=== PATIENT | female | born 1995 | race Caucasian/White ===

== ENCOUNTER 2023-09-27 07:56 | Outpatient (CLI) | payer BC, SELFPAY ==
--- NOTE | 2023-09-27 08:15 | CRLHL7_ITS ---
For Patients: As a result of the Century Cures Act, medical imaging exams and procedure reports are released immediately into your electronic medical record. You may view this report before your referring provider. If you have questions, please contact your health care provider. INDICATION: First trimester scan, establish dates. COMPARISON: None. TECHNIQUE: Real-time dietrich-scale imaging of the pelvis was performed. FINDINGS: Sonographic imaging demonstrates a single living intrauterine gestation. The embryo demonstrates a regular cardiac rate measuring 171 beats per minute. The embryo`s crown-rump length measurement of 3.2 cm corresponds to a gestational age of 10 weeks 1 day with a sonographic due date of 04/23/2024. There is a normal-appearing yolk sac. There are no gross abnormalities noted within the embryo at this early state of development. The gestational sac has a normal appearance. There is no evidence of a perigestational hemorrhage. The amount of fluid within the sac appears appropriate for gestational age. The cervix is closed. The myometrium appears normal. The ovaries are of normal size. Corpus luteal cyst left ovary. There are no suspicious fluid collections noted in the cul-de-sac. IMPRESSION: Normal first trimester OB ultrasound exam. Gestational age calculated at 10 weeks 1 day with a sonographic due date of 04/23/2024. Dictated by Teo Jamil MD @ 09/27/2023 9:13:02 AM (Electronically Signed)
== END 2023-09-27 07:57 | disposition home or self-care (01) ==
LOC: US 07:58
PROVIDERS: Visit Provider Registered Nurse
DX: Z34.91 Encounter for supervision of normal pregnancy, unspecified, first trimester (principal); Z3A.10 10 weeks gestation of pregnancy
CPT/HCPCS: 76801; 86703; 86706; 86803; 86850; 86900; 86901; 87086; 87340; 87491; 87591

== ENCOUNTER 2023-09-27 09:05 | Outpatient (CLI) | payer BC, SELFPAY ==
[2023-09-27 13:08] LABS: Chlamydia DNA Amplified* NOT DETECTED (No Detected); GC DNA Amplified* NOT DETECTED (No Detected)
== END 2023-09-27 09:06 | disposition home or self-care (01) ==
PROVIDERS: Visit Provider Registered Nurse
DX: Z34.91 Encounter for supervision of normal pregnancy, unspecified, first trimester (principal)
CPT/HCPCS: 86592; 86703; 86704; 86706; 86762; 86787; 86803; 86850; 86900; 86901; 87086; 87340; 87491; 87591

== ENCOUNTER 2023-11-29 13:32 | Outpatient (CLI) | payer BC, SELFPAY | END 2023-11-29 13:33 | disposition home or self-care (01) | LOC: RAD 13:32 | PROVIDERS: Visit Provider Obstetrics & Gynecology | DX: R00.2 Palpitations (principal) | CPT/HCPCS: 93225; 93226 ==

== ENCOUNTER 2023-12-12 09:01 | Outpatient (CLI) | payer BC, SELFPAY ==
--- NOTE | 2023-12-12 09:04 | US_ITS ---
Final Report Patient: ANA PAULA ZEPEDA Facility:?[facility] Patient ID:?[id number] Site Patient ID:?[id number]. Site :?1995 Study:?US OB Pelvis OB ANATOMY-12/12/2023 10:19:32 AM Ordering Physician:?JENNA DURHAM Final Report: INDICATION: Evaluate anatomy. COMPARISON: 09/27/2023 TECHNIQUE: Real time dietrich scale imaging of the fetus was performed as well as color Doppler analysis of the umbilical vessels. FINDINGS: Sonographic imaging demonstrates a single living intrauterine gestation. Fetus demonstrates a regular cardiac rate of 154 beats per minute. Fetus has a vertex position. The placenta lies anteriorly without evidence of placenta previa. Incidental placental lakes are present. Placental edge is 3.4 cm from the internal cervical os. Amniotic fluid volume appears normal. Single deepest vertical pocket: 4.0 cm. The cervix is closed and measures 4.1 cm in length. The composite ultrasound gestational age is calculated at 21 weeks 3 days with an estimated sonographic due date of 04/20/2024. The estimated weight is 397 grams which lies at the 91st %. The following biometric measurements were obtained: Biparietal diameter: 5.0 cm/21 weeks 0 days 82nd% Head circumference: 18.9 cm/21 weeks 2 days 86th% Abdominal circumference: 15.8 cm/20 weeks 6 day 70th% Femur length: 3.6 cm/21 weeks 2 days 79th% The HC/AC ratio measures: 1.20 range (1.06-1.24) On anatomic survey, there is a normal appearance of the cerebral ventricles, cavum septi pellucidi, cisterna magna and cerebellum. The nose, lips, and facial profile appear normal. The cervical, thoracic and lumbar spine are well visualized and appear normal. There is a normal four-chamber heart view and the left and right ventricular outflow tracts appear normal. The diaphragm and stomach appear normal. The kidneys and bladder also appear normal. There is a normal three-vessel cord and cord insertion site. The four extremities appear normal. IMPRESSION: Sonographic gestational age 21 weeks 3 days and a sonographic due date of 04/20/2024. Sonographic age 9 days ahead of the clinical age. Estimated weight 91st percentile. Abdominal circumference 70th percentile. Normal anatomic survey. Dictated by Teo Jamil MD @ 12/12/2023 11:27:47 AM (Electronic Signature)
== END 2023-12-12 09:02 | disposition home or self-care (01) ==
LOC: US 09:01
PROVIDERS: Visit Provider Obstetrics & Gynecology
DX: Z34.92 Encounter for supervision of normal pregnancy, unspecified, second trimester (principal); Z3A.20 20 weeks gestation of pregnancy
CPT/HCPCS: 76805

== ENCOUNTER 2024-01-09 08:07 | Outpatient (CLI) | payer BC, SELFPAY ==
--- NOTE | 2024-01-09 08:15 | US_ITS ---
Patient: ANA PAULA ZEPEDA Facility:?[facility] Patient ID:?[id number] Site Patient ID:?[id number]. Site :?1995 Study:?US-OB Pelvis growth check-01/09/2024 8:57:51 AM Ordering Physician:ZINA Final Report: INDICATION: recheck growth and placenta lakes COMPARISON: 12/12/2023 TECHNIQUE: Real time dietrich scale imaging of the fetus was performed. FINDINGS: Sonographic imaging demonstrates a single living intrauterine gestation. Fetus demonstrates a regular cardiac rate of 133 beats per minute. Fetus has a vertex position. The placenta lies anterior fundal. Amniotic fluid volume appears normal and there is a single deepest vertical pocket: 4.3 cm. The estimated weight is 765gm which lies at the 82nd %. On the prior OB ultrasound exam dated 12/12/2023 the estimated weight was at the 91st%. BPD 78th percentile. HC 78th percentile. AC 62nd percentile. FL 74th percentile. The HC/AC ratio measures 1.16 range (1.04-1.22). Tiny placental lakes are incidentally noted. IMPRESSION: Sonographic gestational age 25 weeks 1 day and sonographic due date of 04/22/2024. Sonographic age 1 week ahead of the clinical age. Estimated weight 82nd percentile. Abdominal circumference 62nd percentile. Dictated by Teo Jamil MD @ 01/09/2024 10:52:48 AM Signed by:?Teo Jamil MD @01/09/2024 10:52:48 AM (Electronic Signature)
== END 2024-01-09 08:08 | disposition home or self-care (01) ==
LOC: US 08:08
PROVIDERS: Visit Provider Obstetrics & Gynecology
DX: O43.102 Malformation of placenta, unspecified, second trimester (principal); Z3A.25 25 weeks gestation of pregnancy
CPT/HCPCS: 76816

== ENCOUNTER 2024-02-06 14:25 | Outpatient (CLI) | payer BC, SELFPAY | END 2024-02-06 14:26 | disposition home or self-care (01) | LOC: NFLDREF 02-09 06:51 | PROVIDERS: Visit Provider Obstetrics & Gynecology | DX: Z34.93 Encounter for supervision of normal pregnancy, unspecified, third trimester (principal) | CPT/HCPCS: 86592 ==

== ENCOUNTER 2024-02-13 07:46 | Outpatient (CLI) | payer BC, SELFPAY | END 2024-02-13 07:47 | disposition home or self-care (01) | LOC: NFLDREF 02-14 11:14 | PROVIDERS: Visit Provider Obstetrics & Gynecology | DX: R73.09 Other abnormal glucose (principal) | CPT/HCPCS: 82951; 82952 ==

== ENCOUNTER 2024-03-05 12:55 | Outpatient (CLI) | payer BC, SELFPAY ==
--- NOTE | 2024-03-05 13:00 | US_ITS ---
Patient: ANA PAULA ZEPEDA Facility:?[facility] Patient ID:?[id number] Site Patient ID:?[id number]. Site :?1995 Study:?US-OB Pelvis FOLLOW UP-03/05/2024 1:38:12 PM Ordering Physician:?FRANCHESKA RODRIGUEZ Final Report: OBSTETRICAL ULTRASOUND ? [id number] INDICATION: Follow-up growth and placental lakes. COMPARISON: 01/09/2024. PARKER by LMP: 04/29/2024. GESTATIONAL AGE: 32w 1d. TECHNIQUE: Transabdominal pelvic ultrasound. FINDINGS: position: Vertex. Cervix: Not visualized. Placenta position: Anterior, fundal, left wall. Amniotic fluid: 4.1 cm SDP. Biometry: BPD: 8.4 cm, 33 weeks 5 days, 83%. HC: 30 cm, 33 weeks 2 days, 41%. AC: 29 cm, 33 weeks 0 days, 75%. FL: 6.3 cm, 32 weeks 4 days, 47%. FL/AC Ratio: 21.63%. HC/AC Ratio: 1.03. heart rate: 125 bpm. EFW: 2086 g, 4 lb 10 oz. age by this ultrasound: 33 weeks 1 day. PARKER by this ultrasound: 04/22/2024. Percentile by PARKER: 66%. IMPRESSION: 1. Measurements are consistent with dates. 2. Good interval growth since the prior exam. 3. The placenta appears normal for age. Jose Gibbs M.D. Body/Diagnostic Radiologist [email or web address] JOAQUIM/roseann D& Transcribed: 5:15 p.m. SP/Dictated by: Jose Gibbs MD @ 03/06/2024 3:28:00 PM Signed by:?Jose Gibbs MD @03/07/2024 4:05:26 PM (Electronic Signature)
== END 2024-03-05 12:56 | disposition home or self-care (01) ==
LOC: US 12:55
PROVIDERS: Visit Provider Obstetrics & Gynecology
DX: O43.103 Malformation of placenta, unspecified, third trimester (principal); Z3A.33 33 weeks gestation of pregnancy
CPT/HCPCS: 76816

== ENCOUNTER 2024-04-04 11:47 | Outpatient (CLI) | payer BC, SELFPAY ==
[2024-04-05 14:28] LABS: Strep B DNA Probe Negative (Negative)
[2024-04-05 14:34] LABS: Strep B Susceptibility Needed? No
== END 2024-04-04 11:48 | disposition home or self-care (01) ==
LOC: NFLDREF 11:47
PROVIDERS: Visit Provider Obstetrics & Gynecology
DX: Z34.93 Encounter for supervision of normal pregnancy, unspecified, third trimester (principal)
CPT/HCPCS: 87081; 87653

== ENCOUNTER 2024-04-27 16:29 | Outpatient (CLI) | payer BC, SELFPAY ==
[2024-04-27 16:49] VITALS: TEMP 36.5
--- NOTE | 2024-04-27 18:52 | PC.OBNST ---
NST Note NST Note Start: 04/27/24 16:51 Freq: ONCE Status: Active Protocol: Document 04/27/24 18:51 PROTESTANT (Rec: 04/27/24 18:51 PROTESTANT [id number]) NST Note 4 Para (# of births) 2 EDC 04/29/24 Gestational Age In Weeks & Days 39 Weeks & 5 Days Patient Presented with Complaint(s) of Contractions/cramping Reactive Yes Appropriate for Gestational Age Yes JESUS Odonnell.Rojelio Date 04/27/24 Reactive Yes Appropriate for Gestational Age Yes JESUS Mayers.Rojelio Date 04/27/24 OB NST charge Yes Complete NST Note via Write Note Yes The provider's electronic signature indicates the NST is reactive/appropriate for gestational age. *Note to provider: If an addendum is required, open the patient's chart and click on the note under the Nurse/Allied Health tab.
== END 2024-04-27 18:48 | disposition home or self-care (01) ==
LOC: OB OUT 16:31 → OB 16:45
PROVIDERS: Visit Provider Obstetrics & Gynecology
DX: O47.1 False labor at or after 37 completed weeks of gestation (principal); Z3A.39 39 weeks gestation of pregnancy
CPT/HCPCS: 59025; G0463

== ENCOUNTER 2024-05-01 02:13 | Inpatient (IN) | payer BC, SELFPAY ==
[2024-04-30 22:48] VITALS: BP 128/74; PULSE 100; PULSE 91; O2SAT 97
[2024-04-30 22:50] VITALS: TEMP 36.6
[2024-04-30 23:28] LABS: Amnisure Rom* Negative
[2024-05-01] VITALS (43 sets, daily range): BP systolic 104–139; BP diastolic 58–83; PULSE 65–109; RESP 12–16; TEMP 36.6–37.1; O2SAT 93–100; BMI 28.8
[2024-05-01 03:10] LABS: Basophils Percent Auto 0.3 % (0.0-3.0); Hematocrit 36.6 % (33.0-51.0); Hemoglobin* 12.2 gm/dL (12.0-16.0); Immature Granulocytes Pct Auto 0.8 %; Lymphocytes Percent Auto 20.5 % (20-44); Mean Corpuscular HGB Conc 33 gm/dL (32-36); Mean Corpuscular Hemoglobin 29 pg (26-34); Mean Corpuscular Volume 86 fL (80-100); Neutrophils Percent Auto 70.4 % (42.0-72.0); Platelet Count* 220 K/uL (140-440); RDW Coefficient of Variation % 13.4 % (11.5-15.5); Red Blood Count 4.27 m/uL (4.00-5.20); White Blood Count* 11.85 K/uL (4.50-11.00)
[2024-05-01 03:12] LABS: Slide Review Reflex No
[2024-05-01] MEDS: LACTATED RINGERS 1000 ML 1,000 ML 125 ML IV (08:00)
[2024-05-01] MEDS: OXYTOCIN 30 unit/500 ML in NS 30 UNIT/500 ML BAG IVPB (08:03)
--- NOTE | 2024-05-01 08:57 | W.PM.LDBA ---
Subjective History of Present Illness Date Seen: 05/01/24 Narrative: Patient is being admitted to Labor and Delivery for labor augmentation. She is a 28 year old at 40 2/7 weeks gestation. Her full history and physical was dictated by Dr. Ash on 04/09/24. Please see this for details. Patient came in last night with concerns of watery like vaginal discharge. Evaluation at labor and delivery does not support rupture of membranes, but patient with advanced cervical dilation, lives more than 45 minutes from the hospital and history of PPH x2. After discussion with patient, she would prefer to be admitted for delivery. Specific Issues/Plans H&P 04/09/24, Nilsa Spouse: Colt. Daughter's: Joseph Arizmendi. Baby: Girl! PLEASE NOTIFY DR. RAMIRES FOR DELIVERY- 2 large IVs upon arrival, T&C # History of hemorrhage x2 due to lower uterine atony. Required packed red blood cells and FFP following 2nd delivery. Dr Mark Perez has a thorough plan laid out for future deliveries in a previous office visit note. Continue vitamin plus iron supplement. Can take every other day. For active management of the 3rd stage of labor: Immediately after infant delivery: 1 g IV TXA, 30 units pitocin in 500ml Saline wide open. Immediately after delivery of the placenta: 800mg Cytotec TN, 0.20mg IM Methergine to prevent uterine atony. I encouraged the patient to consider epidural for labor analgesia due to history of requiring bimanual massage of her uterus to treat uterine atony with both of her previous pregnancies/deliveries. Bimanual massage is exquisitely painful if women do not have ITN or epidural anesthesia. Plan Porsha if WINNIE atony after delivery of the placenta. Discussed recommendation for IOL at 39 weeks (or as indicated sooner) in the setting of risk of PPH on 11/27, patient would like to avoid induction but will consider further #Placental lakes at FAS -Growth US at 24 weeks: normal, tiny placental lakes -Growth US at 32 weeks: Normal. Growth 66% #History of depression. Stable mood 1st OB. #History of skin cancer (not melanoma). Follows with Dermatology on a regular basis. #Varicose veins in lower extremities Flu: Recommended. Declines Covid: Recommended. Reviewed risks of COVID infection in . Not vaccinated, declined Tdap: Declined OB - Problem Based A/P Additional Plan (1) : Status: Acute Plan 1. Labor augmentation, will start low dose Oxytocin, once she is feeling contractions as stronger plans to get epidural and after epidural will proceed with AROM. 2. GBS negative, no need for antibiotic prophylaxis. 3. Hx. of PPH. [address], hemoglobin upon admission 12.2mg/dL. Normal platelets. Will plan to give TXA within 30 minutes of expected vaginal delivery. All uterotonics available and no contraindications, PORSHA in room. OB Exam Physical Exam Vital signs: Temp Pulse Resp BP Pulse Ox 98.2 F 88 16 117/69 98 05/01/24 08:13 05/01/24 08:13 05/01/24 08:13 05/01/24 08:13 05/01/24 08:13 Detailed Labor and Delivery Exam Patient Gravid: Yes Dilation (cm): 6 Effacement (%): 70 Cervix position: mid Consistency: soft Tachysystole: No Contraction intensity: Mild Fetus (Single) Station: -2 Amniotic Membrane Status: intact Heart Rate Baseline: 120 Monitor Accelerations: Present Monitor Decelerations: None Regulatory Affairs Specialist Variability: Moderate (6-25)
[2024-05-01] MEDS: ROPIVACAINE 0.2% 100 ml 100 ML 12 MG EPIDURAL (12:05)
[2024-05-01] MEDS: BUPIVACAINE 0.25% PF 10 ML 10 ML ML EPIDURAL (12:05)
--- NOTE | 2024-05-01 12:13 | PM.ANBPRC ---
[facility] Medical History Depression with anxiety ?F41.8 - Other specified anxiety disorders (ICD-10) Basal cell carcinoma ?C44.91 - Basal cell carcinoma of skin, unspecified (ICD-10) ADD (attention deficit disorder) ?F98.8 - Other specified behavioral and emotional disorders with onset usually occurring in childhood and adolescence (ICD-10) Suicide attempt ?T14.91XA - Suicide attempt, initial encounter (ICD-10) GERD (gastroesophageal reflux disease) ?K21.9 - Gastro-esophageal reflux disease without esophagitis (ICD-10) History of blood transfusion ?Z92.89 - Personal history of other medical treatment (ICD-10) hemorrhage ?O72.1 - Other immediate hemorrhage (ICD-10) Infection due to severe acute respiratory syndrome coronavirus 2 (SARS-CoV-2) ?U07.1 - COVID-19 (ICD-10) Surgical History S/P Mohs surgery for basal cell carcinoma (06/19/19) ?Z98.890 - Other specified postprocedural states (ICD-10) ?Z85.828 - Personal history of other malignant neoplasm of skin (ICD-10) History of repair of anterior cruciate ligament of right knee (~2008) ?Z98.890 - Other specified postprocedural states (ICD-10) Family History Maternal Grandmother Breast cancer Mother Breast cancer Aunt Breast cancer Paternal Grandfather Coronary artery disease Sister Leukemia Father Seizure disorder Social History Narrative: Cis-gender, heterosexual, woman Relationship status: . 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 Tobacco: Lifetime nonsmoker E-cigarettes: No Alcohol: No Illicit/recreational drugs: No Safety concerns at home or work: No Dietary restriction(s): No Exercise: No Delivery History: 1. 07/25/2019. . 40w1d. Female. 8#7oz. [place]. Epidural. [facility]. EBL 800mL 2. 12/31/2020. . 40w3d. Female. 6#14oz. [place]. Epidural. [facility]. QBL 994mL. WINNIE atony. 2u pRBC's, 1u FFP. 3. Surgical age 15. What is your current living situation?: I presently have a place to live Problems where you live: no known problems In the past 12 months, utilities in danger of being shut off: no In past 12 months, lack of transportation kept you from medical appts, meetings, work, or getting things needed for daily living: no In the past 12 mos, have been you worried that your food would run out before you had money to buy more?: never true In the past 12 mos, the food you bought just didn't last and you didn't have money to buy more?: never true Smoking Status: Never smoker How often does anyone, including family, friends and others, physically hurt you: never How often does anyone, including family, friends and others, insult or talk down to you: rarely How often does anyone, including family, friends and others, threaten you with harm: never How often does anyone, including family, friends and others, scream or curse at you: never Little interest or pleasure in doing things: not at all Feeling down, depressed, or hopeless: not at all Meds Home Medications and Allergies Home Medications ?Medication ?Instructions ?Recorded ?Confirmed ?Type ferrous sulfate 134 mg (27 mg 134 mg PO ONCE 09/27/23 05/01/24 History iron) tablet vits no.126-ferrous fum 1 tab PO .QD PRN 09/27/23 05/01/24 History 28 mg iron-folic acid 800 mcg tablet (Classic ) calcium carbonate (Tums) 200 mg PO BID 04/04/24 05/01/24 History Allergies Allergy/AdvReac Type Severity Reaction Status Date / Time No Known Allergies Allergy Unknown Verified 04/29/24 09:35 Results Labs Labs: Laboratory Results - last 24 hr 04/30/24 05/01/24 23:02 03:00 WBC 11.85 H RBC 4.27 Hgb 12.2 Hct 36.6 MCV 86 MCH 29 MCHC 33 RDW Coeff of Hilary 13.4 Plt Count 220 Neut % (Auto) 70.4 Lymph % (Auto) 20.5 [place] % (Auto) 7.0 Eos % (Auto) 1.0 Baso % (Auto) 0.3 Neut # (Auto) 8.30 H Lymph # (Auto) 2.40 [place] # (Auto) 0.80 Eos # (Auto) 0.10 Baso # (Auto) 0.00 Abs Immat Gran (auto) 0.10 Imm/Tot Granulo (auto) 0.8 Membrane Rupture Negative Blood Type B Positive Antibody Screen NEGATIVE Vital Signs Vital Signs: Last Vital Signs Temp 98.2 F 05/01/24 08:13 Pulse 82 05/01/24 12:12 Resp 16 05/01/24 08:13 BP 123/64 05/01/24 12:12 Pulse Ox 100 05/01/24 11:55 Weight: 82.236 kg Height: 168.91 cm Anesthesia Procedures Epidural Insertion Patient Location: OB Start Time: 11:40 Stop Time: 12:13 Start Date: 05/01/24 Stop Date: 05/01/24 Reason for Block: procedure for pain Patient Position: sitting Performed By: Nestor Mckeon Preanesthetic Checklist: IV checked, risks and benefits discussed, monitors and equipment checked, pre-op evaluation, timeout performed and anesthesia consent Prep: chlorhexidine gluconate Monitoring: blood pressure monitoring, continuous pulse oximetry and heart rate Approach: midline Vertebral Space: lumbar (1-5) Epidural Technique: DESTINI saline Needle Type: Tuohy needle Injection Technique: continuous catheter Needle gauge: 17 Needle Length (cm): 10 cm Needle Insertion Depth (cm): 6 Catheter Gauge: 19 Catheter Type: multi-orifice Catheter at skin depth (cm): 12 Test Dose Result: negative and lidocaine 1.5% with epinephrine 1 to 200,000
[2024-05-01] MEDS: LACTATED RINGERS 1000 ML 1,000 ML 999 ML IV (12:16)
[2024-05-01] MEDS: ONDANSETRON 2 MG/ML inj 4 MG IV (14:27)
[2024-05-01] MEDS: TRANEXAMIC ACID 100 MG/ML INJ 1000 MG IV (15:32)
[2024-05-01] MEDS: OXYTOCIN 30 unit/500 ML in NS 30 UNIT/500 ML BAG 999 UNIT IVPB (15:32)
[2024-05-01] MEDS: miSOPROStoL 800 MCG/4 TABLET PR (15:49)
[2024-05-01] MEDS: METHYLERGONOVINE MALEATE 0.2 MG/ML INJ IM (15:49)
[2024-05-01] MEDS: CEFAZOLIN 2 GM in 0.9 % SODIUM CHLORIDE Mini-bag 100 ML IVPB (16:21)
[2024-05-01] MEDS: IBUPROFEN 600 MG TABLET PO ×2 (17:10→23:44)
--- NOTE | 2024-05-01 19:33 | W.PM.OBVAGDE ---
OB Procedure Vag Delivery Mother Details Mother Details: The patient is a 28 year-old, 4, Para 3, admitted on 05/01/24 at 40.2Days gestation for labor augmentation, this was completed with IV Oxytocin and rupture of a forebag. Progressed normal to complete dilation and started pushing. Delivery uncomplicated. : 4 Para: 2 Weeks Gestation: 40.2 Admission Date: 05/01/24 Additional Details Amniotic Membrane Status: SROM (Rupture of forebag was completed after gross rupture. ) Amniotic Membrane Rupture Date: 05/01/24 Amniotic Membrane Rupture Time: 12:20 Amniotic Membrane Fluid Description: Clear Analgesia/Anesthesia Type: Epidural Waterbirth: No Pitcoin: Yes Intrapartal Events: Labor Augmentation Induction Method: per pitocin protocol Labor Onset: 12:20 Complete: 15:09 Pushin:25 Heart: heart tones during second stage were category 2, deep variables with uterine contractions on second stage of labor. Delivery Details Delivery Date: 05/01/24 Delivery Time: 15:30 Route of delivery: Gender: Female Infant Viability: Alive; Heart Rate Present Position at Delivery: OA Delivery Details: Delivered over intact perineum via spontaneous vaginal delivery. Infant was placed on maternal abdomen.? Cord was clamped and cut after a at least 3-4 minutes. Nose and mouth were bulb suctioned.? weight pending. 1 Minute Interval Total Score: 8 5 Minute Interval Total Score: 9 Additional Details Shoulder Dystocia: No Placenta Delivery Time: 15:45 Placental Delivery Description: Manual Removal (With gentle traction of umbilical cord, placenta was noted to be detaching as progressive lengthening of umbilical cord noted. A pop was felt as when thew umbilical cord detaches from placenta, a bimanual exam was completed and most of the placenta was noted to be at cervix and manual removal comple) Delivery repair: Vicryl Procedure Done: Global Blood Loss: 200 Laceration: Periurethral - 1st Degree Episiotomy Description: None Blood Loss Measurement Type: QBL Bakri Used: No Sponge/Need Count Correct: Yes Cord Vessel Description: 3 Vessels Event Summary Status: Mother and infant were stable after delivery. Disposition: floor
[2024-05-01] MEDS: ACETAMINOPHEN 500 MG TABLET 1000 MG PO (20:09)
[2024-05-02 04:20] VITALS: BP 116/26; PULSE 63; RESP 17; TEMP 36.7
[2024-05-02 07:01] LABS: Hemoglobin* 12.2 gm/dL (12.0-16.0)
[2024-05-02] MEDS: ACETAMINOPHEN 500 MG TABLET 1000 MG PO (07:32)
[2024-05-02] MEDS: DOCUSATE SODIUM 100 MG CAPSULE PO (07:33)
--- NOTE | 2024-05-02 08:23 | P.DS_ITS ---
DS: Providers Provider Date Seen: 05/02/24 Date of admission: 05/01/24 02:13 Primary care physician: Not a Local Provider Admitting Clinician: Haylee Jung MD Attending Physician on discharge: Haylee Jung MD Date of Discharge: 05/02/24 DS: Diagnosis Discharge Diagnosis (1) Lactating mother: Status: Acute (2) care following vaginal delivery: Status: Acute Exam Narrative: Exam Narrative: GENERAL APPEARANCE:? normal affect, alert, no distress? MOOD:? appropriate? CHEST:? clear to auscultation and percussion? HEART:? regular rate and rhythm? ABDOMEN:? soft, non-tender the uterine fundus is U/1 and is appropriate for the stage of recovery.? PERINEUM:? mild edema of the perineum, there is a 1st degree periurethral laceration that is healing well.? EXTREMITIES:? normal and no edema? Const: Vital Signs, click to edit/add: Vital Signs - 24 hr 05/01/24 09:36 05/01/24 10:36 05/01/24 11:40 Temperature Pulse Rate 76 86 Pulse Rate [Blood Pressure Cuff] Respiratory Rate Blood Pressure 131/78 122/73 Blood Pressure [Le ft Arm] Pulse Oximetry 100 Oxygen Delivery [facility] 05/01/24 11:45 05/01/24 11:50 05/01/24 11:52 Temperature Pulse Rate 83 Pulse Rate [Blood Pressure Cuff] Respiratory Rate Blood Pressure 139/74 Blood Pressure [Le ft Arm] Pulse Oximetry 100 100 Oxygen Delivery [facility] 05/01/24 11:55 05/01/24 11:58 05/01/24 12:01 Temperature Pulse Rate 82 83 80 Pulse Rate [Blood Pressure Cuff] Respiratory Rate Blood Pressure 116/70 118/71 124/72 Blood Pressure [Le ft Arm] Pulse Oximetry [facility] 05/[facility]/24 12:04 05/01/24 12:07 05/01/24 12:12 Temperature Pulse Rate 81 88 82 Pulse Rate [Blood Pressure Cuff] Respiratory Rate Blood Pressure 121/70 123/68 123/64 Blood Pressure [Le ft Arm] Pulse Oximetry [facility] 05/01/24 12:18 05/01/24 12:19 05/01/24 12:22 Temperature Pulse Rate 78 77 83 Pulse Rate [Blood Pressure Cuff] Respiratory Rate Blood Pressure 126/66 120/68 126/75 Blood Pressure [Le ft Arm] Pulse Oximetry [facility] 05/01/24 12:38 05/01/24 12:53 05/01/24 13:09 Temperature Pulse Rate 92 86 85 Pulse Rate [Blood Pressure Cuff] Respiratory Rate Blood Pressure 109/69 104/58 L 127/74 Blood Pressure [Le ft Arm] Pulse Oximetry Oxygen Delivery [facility] 05/01/24 13:26 05/01/24 13:38 05/01/24 13:54 Temperature Pulse Rate 81 78 77 Pulse Rate [Blood Pressure Cuff] Respiratory Rate Blood Pressure 124/73 119/72 122/70 Blood Pressure [Le ft Arm] Pulse Oximetry Oxygen Delivery [facility] 05/01/24 14:08 05/01/24 14:38 05/01/24 14:54 Temperature Pulse Rate 76 93 82 Pulse Rate [Blood Pressure Cuff] Respiratory Rate Blood Pressure 128/72 112/73 114/61 Blood Pressure [Le ft Arm] Pulse Oximetry Oxygen Delivery [facility] 05/01/24 15:38 05/01/24 15:46 05/01/24 16:01 Temperature Pulse Rate 109 H 101 H 97 Pulse Rate [Blood Pressure Cuff] Respiratory Rate Blood Pressure 130/60 123/58 L 122/58 L Blood Pressure [Le ft Arm] Pulse Oximetry Oxygen Delivery [facility] 05/01/24 16:16 05/01/24 16:31 05/01/24 16:45 Temperature 98.5 F Pulse Rate 91 93 Pulse Rate [Blood Pressure Cuff] Respiratory Rate Blood Pressure 119/60 137/83 Blood Pressure [Le ft Arm] Pulse Oximetry Oxygen Delivery [facility] 05/01/24 16:46 05/01/24 17:01 05/01/24 17:16 Temperature Pulse Rate 86 81 89 Pulse Rate [Blood Pressure Cuff] Respiratory Rate Blood Pressure 124/72 124/72 122/68 Blood Pressure [Le ft Arm] Pulse Oximetry [facility] 05/[facility]/24 17:31 05/01/24 17:46 05/01/24 18:01 Temperature Pulse Rate 81 81 Pulse Rate [Blood Pressure Cuff] Respiratory Rate Blood Pressure 125/74 121/79 127/69 Blood Pressure [Le ft Arm] Pulse Oximetry Oxygen Delivery [facility] 05/01/24 18:01 05/01/24 20:03 05/01/24 20:03 Temperature Pulse Rate 86 Pulse Rate [Blood Pressure Cuff] Respiratory Rate Blood Pressure 120/70 Blood Pressure [Le ft Arm] Pulse Oximetry 93 Oxygen Delivery [facility] 05/01/24 20:03 05/01/24 20:04 05/01/24 23:40 Temperature 98.3 F 98.2 F Pulse Rate 75 Pulse Rate [Blood Pressure Cuff] 75 65 Respiratory Rate 12 12 Blood Pressure Blood Pressure [Le ft Arm] 120/70 117/76 Pulse Oximetry 95 Oxygen Delivery [facility] Room Air 05/02/24 04:20 Temperature 98.0 F Pulse Rate Pulse Rate [Blood Pressure Cuff] 63 Respiratory Rate 17 Blood Pressure Blood Pressure [Le ft Arm] 116/26 L Pulse Oximetry Oxygen Delivery [facility] Documenting provider has reviewed patient's vital signs: yes OB - DS: Summary Hospital Course Hospital Course: Johanny is a 28 year old G 4 P 3 at 40.2 weeks gestation that was admitted to the Center on 05/01/24 for labor with augmentation. She had an uncomplicated vaginal delivery. She delivered a viable female . She is breast feeding and denies complications or concerns. the patient has done well. Her pain is well controlled with current medications.? She has no new complaints.? Urinary output is adequate and she is voiding without difficulty.? Has a good appetite, is tolerating a general diet, is passing flatus, and has not yet had a bowel movement.? Has scant amount of rubra lochia.? She is ambulating well. She is planning natural family planning for contraception. She has a history of anxiety and depression but is not currently on medications. Reviewed in depth warning signs, normal mood fluctations, and when to be evaluated for mood concerns. Peripartum Data delivery method: Vaginal Laceration description: Periurethral - 1st Degree Episiotomy description: None complications: none [place] Infant Gender: Female Infant Discharge Plan: Home Status at Discharge Functional status at discharge: independent ambulation Overall status at discharge: patient is progressing back to baseline Time Spent with Patient Time attestation: Total time spent providing and/or coordinating discharge services: Discharge Plan Discharge Disposition: Home, Self-Care Date of Admission: 05/01/24 02:13 Primary Care Provider: Provider,Not a Local Condition: Stable Anticipated Discharge Date/Time: 05/02/24 17:30 Discharge Medications: New docusate sodium 100 mg Capsule 100 mg PO DAILY Qty: 90 0RF Rx Instructions: Take 1-2 tablets daily as needed for constipation. ibuprofen 600 mg Tablet 600 mg PO Q6H PRNQty: 60 0RF Continued Classic 28 mg iron- 800 mcg tablet 1 tab PO .QD PRN ferrous sulfate 134 mg (27 mg iron) tablet 134 mg PO ONCE magnesium glycinate 100 mg magnesium capsule 400 mg PO DAILY Qty: 30 0RF calcium carbonate [Tums] 200 mg calcium (500 mg) tablet,chewable 200 mg PO BID Discharge Orders: Discharge Order (Routine); Ordered 05/02/24 Ordered By: Ofelia Cartwright Patient Education: OB Vaginal/Breast Feeding Additional Instructions: Discharge instructions were reviewed with the patient including signs and symptoms of infection and home going medications.? Off Work or School for 6 weeks.? ?? Symptoms to report to doctor:? -Bleeding that saturates more than one pad per hour? -Passing clots larger than the size of a golf ball? -Pain not relieved by prescribed medication? -Fever above 100.4 degrees Fahrenheit? -A foul vaginal odor? -Difficulty in emotions, mood and functions? -Thoughts of hurting yourself and/or ? -Painful, reddened area in your breast? -Any drainage, redness or tenderness in your IV/epidural site? -Severe headache that doesn't improve after taking medications? -Changes in vision, including temporary loss of vision, blurred vision, and/or light sensitivity? -Upper abdominal pain (usually under ribs on the right side)? -Decrease in urination or painful, frequent urinating? -Chest pain? -Shortness of breath? -Tenderness or pain with redness and/swelling in the calf(s) of your leg? ?? Follow Up in clinic in 2 and 6 weeks.? ?? consultation services are available to all mothers and babies for the first year after delivery.? To make an appointment, please call [phone].? Activity Level: Activity as Tolerated Discharge Diet: Regular Follow Up Appointments: [facility] [Provider Group] Provider,Not a Local [Primary Care Provider] - Forms: MyHealth Info Instructions
[2024-05-02] MEDS: IBUPROFEN 600 MG TABLET PO (09:29)
[2024-05-02 10:01] VITALS: BP 118/74; PULSE 70; RESP 16; TEMP 36.6; O2SAT 96
--- NOTE | 2024-05-02 13:56 | PM.ANPOST ---
Post Anesthesia Note Post Anesthesia Note Patient seen: Inpatient Respiratory Status: adequate Cardiovascular Status: adequate Mental Status: baseline Pain: adequate Temp: baseline Anesthetic awareness: N/A Complications: none Follow care: none
[2024-05-02 14:10] VITALS: BP 118/77; PULSE 97; RESP 16; O2SAT 97
== END 2024-05-02 17:05 | disposition home or self-care (01) | DRG 541 ==
LOC: OB OUT 02:13 → OB 05-02 08:24
PROVIDERS: Obstetrics & Gynecology; Admitting Provider Obstetrics & Gynecology; Visit Provider Obstetrics & Gynecology
DX: O48.0 Post-term pregnancy (principal); O72.1 Other immediate postpartum hemorrhage; O70.0 First degree perineal laceration during delivery; Z86.59 Personal history of other mental and behavioral disorders; Z3A.40 40 weeks gestation of pregnancy; Z37.0 Single live birth
CPT/HCPCS: 01967; 36415; 84112; 85018; 85025; 86592; 86850; 86900; 86901; 88307; G0463; A9270; J0665; J0690; J2210; J2405; J2795; J7120

== ENCOUNTER 2024-08-13 10:52 | Outpatient (CLI) | payer BC, SELFPAY ==
--- NOTE | 2024-08-13 12:22 | P.LACCB_ITS ---
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 ?O43.102 - Malformation of placenta, unspecified, second trimester (ICD-10) History of hemorrhage ?Z87.59 - Personal history of other complications of , childbirth and the puerperium (ICD-10) Depression with anxiety ?F41.8 - Other specified anxiety disorders (ICD-10) Basal cell carcinoma ?C44.91 - Basal cell carcinoma of skin, unspecified (ICD-10) ADD (attention deficit disorder) ?F98.8 - Other specified behavioral and emotional disorders with onset usually occurring in childhood and adolescence (ICD-10) Suicide attempt ?T14.91XA - Suicide attempt, initial encounter (ICD-10) GERD (gastroesophageal reflux disease) ?K21.9 - Gastro-esophageal reflux disease without esophagitis (ICD-10) History of blood transfusion ?Z92.89 - Personal history of other medical treatment (ICD-10) hemorrhage ?O72.1 - Other immediate hemorrhage (ICD-10) Infection due to severe acute respiratory syndrome coronavirus 2 (SARS-CoV-2) ?U07.1 - COVID-19 (ICD-10) Work Plans: home with kids Delivery Information Gestational Age: 40+2 Gestational Weight For Age: AGA Weight: 3.54 kg Discharge Weight: 3.26 kg Baby's Information Baby's Age at Visit: 3 month, 1 week Baby's Provider or Clinic: [facility] Jaundice: No Past Experience Past Experience: Yes Current Frequency of Day Feedings: about every 3 hours Frequency of Night Feedings: 6 hour strech x1 Both Breasts: Yes (offered, sometimes just one breast/feed) Suck: strong Latch: comfortable Length of Time: 10 minutes Goals: 1 year Pumping Pumping: No Supplementing EBM Supplement: No Formula Supplement: No Baby Elimination Number of Wet Diapers a Day: each feeding Number of BM a Day: 1-2/day Breast/Nipple Condition Breast Information: Breasts are symmetrical with rounded lower quadrants, intramammary distance is less than 1.5 inches. No erythema. Nipples are supple, everted prior to feeding. Breast Shape: Round Engorgement: No Maternal Nipple Condition - Left: Common Nipple Maternal Nipple Condition - Right: Common Nipple Sore Nipples: No Onsite Observation Pre-Feed weight: 5.716 kg Post-Feed weight: 5.818 kg Milk Transferred (mL): 102 (nursed 10 min on right breast, offered left, maybe 2 min BFing at most) Position: Cradle Attachment/latch-on achieved: Easily (on and off a little at first, playful) Suck pattern: Suck burst and normal rest Swallow: Audible, consistent and Gulping Behavior following feed: Alert, content Pre-Nursing Left Nipple: Within Normal Limits Pre-Nursing Right Nipple: Within Normal Limits Post-Nursing Left Nipple: Within Normal Limits Post-Nursing Right Nipple: Within Normal Limits Assessments/Interventions Assessments/Interventions: Mom no longer feels her letdowns, nor does she have the full feeling before a feeding; concerned about her milk supply. Lost her milk supply around 6 months of age with her first two children; hoping to prevent that from happening. Carolyn nursed well on right breast; a little on and off. needed quiet environment (no talking, lights dimmed) to stay focused on eating. Carolyn transferred 3.4 oz (3 ml shy of a full 3.5oz) in 10 minutes of nursing; declines feeding on the other breast despite milk dripping from mom's nipple. Tiannae content after feeding. Discussed baby's caloric needs; if feeding 7 times/day, expect baby to need 3.5- 4 oz/feeding, and know not all feedings are exactly the same. Carolyn did have a slightly shallow latch, bottom lip could be flanged out more and on a bit deeper; this may increase her milk intake. Feeding Plan: Discussed feeding/volume needs - always offer 2nd breast as baby may begin taking larger volumes but less frequently as she is more distracted now. Second breast may be more accepted at bedtime and middle of the night feeding (dream- feeding state). Discussed regulation of milk supply and mom not feeling letdown or feeling full is not indicative of her milk supply failing at this time; just her body regulation. Discussed as her menstrual cycle has returned, she may notice a dip in her supply for 3-4 days around the time she bleeds, but baby may nurse more often in those days and it rebounds when she is through the bleeding phase. Mom could use a Ha[place]aa or pump in the evening if babe won't nurse both breasts to have milk to store if desired. Also discussed calm, low cardenas environment for baby to nurse well in this phase. Follow-Up Suggested follow up: Appointment as needed Time Spent Time spent with patient (min): 75 (Reviewing EMR and face to face time with mom and baby) Meds Home Medications and Allergies Home Medications ?Medication ?Instructions ?Recorded ?Confirmed ?Type vits no.126-ferrous fum 1 tab PO .QD PRN 09/27/23 06/11/24 History 28 mg iron-folic acid 800 mcg tablet (Classic ) acetaminophen 500 mg tablet 1,000 mg PO Q6H PRN 05/23/24 06/11/24 History (Tylenol Extra Strength) Allergies Allergy/AdvReac Type Severity Reaction Status Date / Time No Known Allergies Allergy Unknown Verified 06/11/24 10:53
== END 2024-08-13 10:53 | disposition home or self-care (01) ==
LOC: OB LAC 10:53
PROVIDERS: Visit Provider Obstetrics & Gynecology
DX: Z39.1 Encounter for care and examination of lactating mother (principal)
CPT/HCPCS: G0463

== ENCOUNTER 2024-11-29 09:14 | Outpatient (CLI) | payer BC, SELFPAY ==
--- NOTE | 2024-11-29 10:34 | W.PM.LAC.MF ---
Follow-Up Note: Mom Date of visit Date of visit: 11/29/24 Reason for consultation: Assistance Needed and Low Milk Supply (mom is questioning...) Visit Code: Visit Patient's Information Allergies No Known Allergies Allergy (Unknown, Verified 06/11/24 10:53) Delivery Information Last Weight: 7.35 kg Baby's Information Baby's name: Angelina Guerra Baby's Age at Visit: 6m 28d Baby's Provider or Clinic: [facility] Current Frequency of Day Feedings: every 3-4 hours day and night Both Breasts: Yes (offered) Suck: strong Latch: comfortable Length of Time: 5-10 min Pumping Pumping: Yes (a few times/week) Quantity Pumped: 3-4 oz Supplementing EBM Supplement: No Formula Supplement: No Baby Elimination Number of Wet Diapers a Day: 6 or more Number of BM a Day: 2-5/day Breast/Nipple Assessment Breast/Nipple Assessment: Mom has felt like she lost her milk supply around 6 months with her first 2 children; is hoping to prevent that from happening again. She doesn't have a full feeling before baby nurses, but baby will nurse for 5-10 minutes, mom can hear gulping/swallowing and baby is content after feedings. Breast Shape: Round Engorgement: No Maternal Nipple Condition - Left: Common Nipple Maternal Nipple Condition - Right: Common Nipple Sore Nipples: No Onsite Observation Pre-feed weight: 7.502 kg (up 152 gms in 10 days) Post-Feed weight: 7.57 kg Milk Transferred (mL): 68 Pre-Nursing Left Nipple: Within Normal Limits Pre-Nursing Right Nipple: Within Normal Limits Post-Nursing Left Nipple: Within Normal Limits Post-Nursing Right Nipple: Within Normal Limits Assessments/Interventions Assessments/Interventions: observation: Carolyn latches well, is quickly heard swallowing. And flipe is distracted during nursing-smiling at mom, playing with mom's hair, trying to see me in the room. I stepped out to decrease stimulation, turned down lights. Mom reports when baby heard something in hallway would turn to look to sound and see what's going on Discussed this is normal behavior for an almost 7 month old baby; discussed techniques to help minimize distraction. Also discussed this may br why she's back to nursing more frequently at night as she is too busy during the day to nurse well; quiet room, dim lights, not talking to baby during feeding all may help. Some babies do well to have mom wear a necklace that baby can play with while nursing-gives them a focus that doesn't pull them from nursing. Discussed growth for baby is good and no concerns there. Baby not taking a bottle; has no interest in this and mom is ok with that. Discussed can introduce a cup and let baby get used to that as an alternative with sips of water or for EBM if/when they are out and about and baby won't nurse well. Education provided: Supply/demand nature of milk supply, Alternative feeding methods (SNS, cup, finger feeding, bottling), Pumping for milk management and Milk collection, storage Follow-Up Suggested follow up: Appointment as needed (for feeding questions, pumping questions) Time Spent Time spent with patient (min): 45 Meds Home Medications and Allergies Home Medications ?Medication ?Instructions ?Recorded ?Confirmed ?Type vits no.126-ferrous fum 1 tab PO .QD PRN 09/27/23 06/11/24 History 28 mg iron-folic acid 800 mcg tablet (Classic ) acetaminophen 500 mg tablet 1,000 mg PO Q6H PRN 05/23/24 06/11/24 History (Tylenol Extra Strength) Allergies Allergy/AdvReac Type Severity Reaction Status Date / Time No Known Allergies Allergy Unknown Verified 06/11/24 10:53
== END 2024-11-29 09:15 | disposition home or self-care (01) ==
LOC: OB LAC 09:15
PROVIDERS: Visit Provider Obstetrics & Gynecology
DX: Z39.1 Encounter for care and examination of lactating mother (principal)
CPT/HCPCS: G0463